=== PATIENT | male | born 1990 | race Caucasian/White ===

== ENCOUNTER 2019-02-11 14:46 | Emergency (ER) | payer MEDICAID ==
[~2019-02-11] VITALS: Ht 182.9 cm; Wt 96.3 kg
[~2019-02-11 14:46] MED LIST: NO HOME MEDS
[2019-02-11] MEDS ORDERED: dexamethasone sod phosphate 10mg/ml inj PO STA (16:06)
[2019-02-11] MEDS ORDERED: probenecid 500mg tablet PO ONE (16:10)
[2019-02-11] MEDS ORDERED: ketorolac tromethamine 15mg/ml inj. IV ONE (16:10)
[2019-02-11] MEDS ORDERED: ondansetron 4mg rapidly disintigrating tab PO ONE (16:10)
[2019-02-11] MEDS ORDERED: normal saline 1000ML IV soln IVB ONE (16:10)
[2019-02-11] MEDS ORDERED: AMOX-580 PO (16:16)
--- NOTE | 2019-02-11 16:27 | NUR ---
REBECCA CHANGED TO LEVEL 3 PT REQUIRES IV FLUID, ABX AND MEDS. RIO CN NOTIFIED PT WILL BE MOVED TO MAIN ER SHORTLY
--- NOTE | 2019-02-11 16:50 | NUR ---
pt was moved from fast track to er bed 10, report taken from Ida bartlett, care assumed
[2019-02-11] MEDS ORDERED: ampicillin/sulbac 3gm/NS 100ml 100 ML IV ONE (17:05)
[2019-02-11 18:19] VITALS: BP 118/93
== END 2019-02-11 18:20 | disposition home or self-care (01) ==
LOC: ER 14:47
DX: J36 Peritonsillar abscess (principal); R59.0 Localized enlarged lymph nodes; H61.21 Impacted cerumen, right ear; F41.9 Anxiety disorder, unspecified; Z79.2 Long term (current) use of antibiotics
CPT/HCPCS: 96365; 96375; 99284; J1100; J1885; J7030; 96366; J0295

== ENCOUNTER 2019-02-12 15:48 | Emergency (ER) | payer MEDICAID ==
[~2019-02-12] VITALS: Ht 182.9 cm; Wt 95.0 kg
[~2019-02-12 15:48] MED LIST changes: +AMOX-580 PO
[2019-02-12 16:07] VITALS: BP 122/75
== END 2019-02-12 17:17 | disposition home or self-care (01) ==
LOC: ER 15:49
DX: J36 Peritonsillar abscess (principal); F41.9 Anxiety disorder, unspecified; Z79.899 Other long term (current) drug therapy
CPT/HCPCS: 99281